=== PATIENT | male | born 1965 | race Caucasian/White ===

== ENCOUNTER 2017-07-04 10:53 | Emergency (ER) | payer MEDICAID, OTHER ==
[2017-07-04 11:05] VITALS: BP 131/91; PULSE 92; RESP 22; TEMP 98; O2SAT 98
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
[2017-07-04] MEDS ORDERED: Amoxicillin-Clav 875-125 mg Tab PO ONE (13:14)
== END 2017-07-04 13:24 | disposition home or self-care (01) ==
LOC: C.ER 10:53
DX: F10.10 Alcohol abuse, uncomplicated (principal); Y90.9 Presence of alcohol in blood, level not specified; S02.2XXA Fracture of nasal bones, initial encounter for closed fracture; S02.31XA Fracture of orbital floor, right side, initial encounter for closed fracture; S01.81XA Laceration without foreign body of other part of head, initial encounter; Y04.0XXA Assault by unarmed brawl or fight, initial encounter

== ENCOUNTER 2017-07-11 14:42 | Inpatient (IN) | payer MEDICAID, OTHER ==
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
[2017-07-11 15:33] LABS: BASO % 0.4 % (0.0-2.0); EOS % 0.2 % (0.0-4.0); HEMATOCRIT 45.3 % (35.0-51.0); LYMPH # 1.8 K/uL (1.0-4.3); LYMPH % 19.9 % (20.0-40.0); MEAN CELL VOLUME 96.2 fL (80.0-94.0); MEAN CORPUSCULAR HEMOGLOBIN 31.9 pg (27.0-31.0); MEAN CORPUSCULAR HGB CONC 33.1 g/dL (33.0-37.0); MEAN PLATELET VOLUME 7.3 fL (7.2-11.7); MONO # 0.8 K/uL (0.0-0.8); MONO % 8.8 % (0.0-10.0); RED CELL DISTRIBUTION WIDTH 14.3 % (11.5-14.5)
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
[2017-07-11 15:56] LABS: ALCOHOL SERUM 149 mg/dl (0-10); ALKALINE PHOSPHATASE 122 U/L (38-126); ALT/SGPT 93 U/L (21-72); AST/SGOT 105 U/L (17-59); BILIRUBIN,TOTAL 0.8 mg/dL (0.2-1.3); BLOOD UREA NITROGEN 11 mg/dL (9-20); CALCIUM 8.3 mg/dl (8.6-10.4); CARBON DIOXIDE 35 mmol/L (22-30); CHLORIDE 100 mmol/L (98-107); GFR AFRICAN-AMERICAN > 60; GLUCOSE,RANDOM 85 mg/dL (75-110); POTASSIUM 4.8 mmol/L (3.6-5.2); SODIUM 141 mmol/L (132-148); TOTAL PROTEIN 9.3 g/dL (6.3-8.3)
[2017-07-11 16:03] LABS: ALB/GLOB RATIO 0.9 (1.0-2.1)
[2017-07-11 17:50] LABS: RBC URINE 2 /hpf (0-3); URINE BILIRUBIN NEGATIVE (NEGATIVE); URINE BLOOD 1+ (NEGATIVE); URINE COLOR Straw (YELLOW); URINE GLUCOSE (UA) NORMAL (Normal); URINE KETONE NEGATIVE (NEGATIVE); URINE LEUKOCYTE ESTERASE NEG Leu/uL (Negative); URINE PROTEIN NEGATIVE (NEGATIVE); URINE UROBILINOGEN NORMAL mg/dL (0.2-1.0); WBC URINE < 1 /hpf (0-5)
--- NOTE | 2017-07-11 21:40 | PCM.BM ---
<Leslee Hernandez - Last Filed: 07/11/17 21:39> Treatment Plan Problems - Problems identified on initial assessmt Potential for alcohol withdrawal Date Initiated: 07/11/17 Time Initiated: 21:39 Assessment reference: NA Status: Active Priority: 1 Treatment assets and liabiliti Patient Assests: ADL independent, negotiates basic needs, cognitively intact Patient Liabilities: substance abuse (ETOH), other (HOMELESS) - Milieu Protocol Maintain good personal hygiene: daily Encourage regular showers, daily Remind patient to perform daily oral care, daily Assist patient to perform ADL's Conduct patient checks and document Observation sheet: Q15 minutes Maintain personal safety: every shift Educate patient to report safety concerns to staff, every shift Monitor environment for contraband/sharps Medication safety: Monitor for expected outcome, potential side effects: every shift, Assess barriers to learning: every shift, Assess readiness for medication education: every shift <Maria Fernanda Calixto - Last Filed: 07/13/17 15:06> Family Contact Family involvement: Famliy/SO not involved Family contact: Patient agrees to contact, Telephone contact initiated by staff - Goals for Treatment Patient goals for treatment: Complete detox, return to methadone program, and live with his brother as he is homeless. Discharge/Continuing Care - Education Needs Education Needs: Patient Medication, Patient Diagnosis/Disease Process, Patient Coping Skills, Patient Anger Management skills, Patient Placement options, Patient Community resources - Discharge Discharge Criteria: Ability to care for self, No longer exhibiting s/s of withdrawal, Reduction of target symptoms Discharge to:: Home, With Family - Treatment Team Participation Patient/Family/SO Statement: 07/13/17 15:07 "I [facility] stay on methadone at [facility]." Discussed with Family/SO: No Was Patient/Family/SO present at Treatment Team Meeting: Yes <Lauren Rai - Last Filed: 07/15/17 18:09> - Diagnosis (1) Alcohol use disorder, severe, dependence Status: Acute Interventions: 07/15/17 18:09 * Assess 7x/week regarding severity of withdrawal * Educate regarding risks, benefits, side effects and alternatives of medications * Use Motivational Interviewing for abstinence * Use CBT for relapse prevention * Medication management for withdrawal symptoms * Encourage medication assisted treatment *
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
--- NOTE | 2017-07-12 07:28 | CP.PCM.PN ---
<Yasmin Adams - Last Filed: 07/12/17 17:43> Subjective - Date & Time of Evaluation Date of Evaluation: 07/12/17 Time of Evaluation: 10:00 - Subjective Subjective: Medicine Note for Hospitalist Service- Dr. Kusum Hurt Patient was seen and examined at bedside. Patient reports he has pain at his right thumb and left knee. Denied fever, chills, headache, SOB, chest pain, abdominal pain, n/v/d/c, or urinary symptoms. Objective - Vital Signs/Intake and Output Vital Signs (last 24 hours): Temp Pulse Resp BP Pulse Ox 98.0 F 66 18 147/90 97 07/12/17 06:28 07/12/17 06:28 07/12/17 06:28 07/12/17 06:28 07/12/17 06:28 - Medications Medications: Current Medications Acetaminophen (Tylenol 325mg Tab) 650 mg PO Q6 PRN PRN Reason: Pain, moderate (4-7) Clonidine HCl (Catapres) 0.1 mg PO Q4H PRN PRN Reason: Symptoms of alcohol withdrawl Folic Acid (Folic Acid) 1 mg PO DAILY [facility] Hydroxyzine HCl (Atarax) 25 mg PO Q6 PRN PRN Reason: Anxiety Lorazepam (Ativan) 1 mg PO Q4H PRN PRN Reason: Symptoms of alcohol withdrawl Lorazepam (Ativan) 1 mg PO Q4 JESSICA PRN Reason: Taper Stop: 07/16/17 21:44 Last Admin: 07/12/17 04:28 Dose: Not Given Multivitamins (Hexavitamin) 1 tab PO DAILY [facility] Thiamine HCl (Vitamin B1 Tab) 100 mg PO DAILY JESSICA Trazodone HCl (Desyrel) 50 mg PO HS PRN PRN Reason: Insomnia - Labs Labs: 07/11/17 15:29 07/11/17 15:29 - Additional Findings Additional findings: - Constitutional Appears: Non-toxic, No Acute Distress, Unkempt, Cachectic - Head Exam Additional comments: laceration between eyebrows - healing abrasion over left eyebrow and chin - Eye Exam Eye Exam: EOMI, PERRL. absent: Periorbital swelling Additional comments: periorbital bruising - ENT Exam ENT Exam: Mucous Membranes Moist - Neck Exam Neck exam: Negative for: Tenderness - Respiratory Exam Respiratory Exam: Clear to Auscultation Bilateral, NORMAL BREATHING PATTERN. absent: Rales, Rhonchi, Wheezes - Cardiovascular Exam Cardiovascular Exam: RRR, +S1, +S2. absent: Bradycardia, Tachycardia, Diastolic murmur, Gallop, Rubs, Systolic Murmur - GI/Abdominal Exam GI & Abdominal Exam: Hyperactive Bowel Sounds, Soft. absent: Distended, Tenderness - Extremities Exam Extremities exam: Positive for: joint swelling (left knee ) Additional comments: LLE: hematoma and abrasion of left anterolateral thigh that is painful to palpation swelling of medial aspect of left knee knee pain with flexion of the knee joint - relieved with extension Full ROM no loss of sensation RUE: DIP of 1st digit swollen and painful to palpation or with flexion, can only achieve approximately 45 degrees of flexion pain with palpation of the proximal phalange of the 1st digit no loss of sensation - Back Exam Back exam: NORMAL INSPECTION - Neurological Exam Neurological exam: Abnormal Gait (limp due to pain of left thigh ), Alert, Oriented x3 Additional comments: tremor of hands b/l - Psychiatric Exam Psychiatric exam: Normal Affect, Normal Mood - Skin Skin Exam: Dry, Normal Color, Warm Assessment and Plan - Assessment and Plan (Free Text) Plan: 52M with PMHx of Untreated Hepatitis C, IVDA - heroine, currently on methadone program 160mg/ day from [facility] in [place]. Medicine Team consulted for injuries of right hand and left thigh and knee s/p fall. Left Thigh Pain Phlegmon vs abscess vs myositis S/P Fall CT of LLE with IV contrast - Limited study with step-off artifact in the distal femur as well as beam hardening artifact in the proximal and mid femur. 1.Heterogeneous attenuation seen at the level of the vastus intermedius muscle throughout its course with associated heterogeneous attenuation at the myofascial interface of the rectus femoris and vastus intermedius muscles. This may represent underlying acute infectious changes and/or underlying phlegmon / abscess collection with myositis. Additional etiologies not entirely excluded. Correlation with MRI is recommended for further evaluation if clinically indicated. 2. Moderate left knee joint effusion. Lateral subluxation of the patella. Moderate medial compartment joint space narrowing of the femoral tibial joint space. 3. Incidentally noted is a prominent heterogeneous and partially calcified prostate gland. Clinical correlation. Head CT: No acute intracranial hemorrhage. Minor chronic periventricular white matter ischemic changes. Mild volume loss. Re- demonstrated are fractures of the right lamina papyracea. Also again seen are comminuted nasal bone fractures and fracture with rightward deviation of the nasal septum. F/U Lower Extremity MRI Tylenol PRN pain Subluxation of Left Patella Ortho Consulted - Dr. Magaña - help appreciated Right Thumb Pain XR of right hand with thumb views - No acute fracture. Mild senescent changes 1st metacarpal phalangeal joint. Old healed fracture with deformity 5th metacarpal. Tylenol PRN pain Transaminitis Hx of Hepatitis C Will need to be managed as outpatient - with GI F/U Hep panel Hx of IVDA On methadone program 160mg/day from [facility] in , confirmed by Psych Management as per Psych Hx of Alcohol Abuse Management as per Psych DW Dr. Kusum Hurt, Bryan ZARATE, PGY-1 <Elvin Hurt - Last Filed: 07/12/17 19:09> Objective - Vital Signs/Intake and Output Vital Signs (last 24 hours): Temp Pulse Resp BP Pulse Ox 98.1 F 67 20 118/89 96 07/12/17 16:30 07/12/17 16:30 07/12/17 16:30 07/12/17 16:30 07/12/17 16:30 - Medications Medications: Current Medications Acetaminophen (Tylenol 325mg Tab) 650 mg PO Q6 PRN PRN Reason: Pain, moderate (4-7) Clonidine HCl (Catapres) 0.1 mg PO Q4H PRN PRN Reason: Symptoms of alcohol withdrawl Folic Acid (Folic Acid) 1 mg PO DAILY [facility] Last Admin: 07/12/17 10:26 Dose: 1 mg Hydroxyzine HCl (Atarax) 25 mg PO Q6 PRN PRN Reason: Anxiety Lorazepam (Ativan) 1 mg PO Q4H PRN PRN Reason: Symptoms of alcohol withdrawl Lorazepam (Ativan) 1 mg PO Q4 [facility] PRN Reason: Taper Stop: 07/16/17 21:44 Last Admin: 07/12/17 16:25 Dose: 1 mg Methadone HCl (Methadone) 20 mg PO DAILY [facility] Last Admin: 07/12/17 10:27 Dose: 20 mg Methadone HCl (Methadose) 120 mg PO DAILY [facility] Last Admin: 07/12/17 10:28 Dose: 120 mg Multivitamins (Hexavitamin) 1 tab PO DAILY [facility] Last Admin: 07/12/17 10:26 Dose: 1 tab Thiamine HCl (Vitamin B1 Tab) 100 mg PO DAILY [facility] Last Admin: 07/12/17 10:26 Dose: 100 mg Trazodone HCl (Desyrel) 50 mg PO HS PRN PRN Reason: Insomnia - Labs Labs: 07/11/17 15:29 07/11/17 15:29 Attending/Attestation - Attestation I have personally seen and examined this patient.: Yes I have fully participated in the care of the patient.: Yes I have reviewed all pertinent clinical information, including history, physical exam and plan: Yes Notes (Text): 07/12/17 19:08 Patient was seen and examined at 8:15 AM 07/12/17 763 B. Exam, assessment and plan were thoroughly gone over with the resident. Elvin Hurt D.O.
[2017-07-12] MEDS: Multiple Vitamins Tab PO SCH (10:26)
[2017-07-12] MEDS: Methadone 40 mg Tab PO SCH (10:28)
[2017-07-12] MEDS ORDERED: Iodixanol 320 MG/ML 100 ML BOTTLE IV ONE (11:08)
--- NOTE | 2017-07-12 11:53 | PCM.PSYCH ---
Initial Psychiatric Evaluation - Initial Psychiatric Evaluation Type of Admission: Voluntary Legal Status: Capacity Chief Complaint (in patient's own words): "I want to get better" History of Present Illness and Precipitating Events: This patient was seen, chart reviewed, and case discussed with staff. Patient is a 52 year old male who is homeless. He is single with 3 adult children (ages 29, 30, 31) and is employed for manual labor (building work , taking out garbage). Patient reports alcohol use, average 1 pint liquor and 5 cans beer daily for the past 3 years. He denies previously attending detox, rehab, or AA. He denies any history of seizures or DT. He is also on a methadone maintenance program at [facility], 160mg which was increased 1 year ago from 80mg. He denies any cocaine, PCP, LSD, or any other drug use. He reports tobacco use at 1ppd. Past medical history: denies Past psychiatric history: schizophrenia, bipolar disorder, depression Family psychiatric history: brother committed suicide Current Medications: Active Medications Generic Name Dose Route Start Last Admin Trade Name Freq PRN Reason Stop Dose Admin Acetaminophen 650 mg 07/12/17 01:19 Tylenol 325mg Tab PO Q6 PRN Pain, moderate (4-7) Clonidine HCl 0.1 mg 07/11/17 21:36 Catapres PO Q4H PRN Symptoms of alcohol withdrawl Folic Acid 1 mg 07/12/17 10:00 07/12/17 10:26 Folic Acid PO 1 mg DAILY JESSICA Administration Hydroxyzine HCl 25 mg 07/11/17 21:37 Atarax PO Q6 PRN Anxiety Lorazepam 1 mg 07/11/17 21:36 Ativan PO Q4H PRN Symptoms of alcohol withdrawl Lorazepam 1 mg 07/11/17 21:45 07/12/17 07:59 Ativan PO 07/16/17 21:44 1 mg Q4 JESSICA Administration Taper Methadone HCl 20 mg 07/12/17 10:00 07/12/17 10:27 Methadone PO 20 mg DAILY JESSICA Administration Methadone HCl 120 mg 07/12/17 10:00 07/12/17 10:28 Methadose PO 120 mg DAILY JESSICA Administration Multivitamins 1 tab 07/12/17 10:00 07/12/17 10:26 Hexavitamin PO 1 tab DAILY JESSICA Administration Thiamine HCl 100 mg 07/12/17 10:00 07/12/17 10:26 Vitamin B1 Tab PO 100 mg DAILY JESSICA Administration Trazodone HCl 50 mg 07/11/17 21:36 Desyrel PO HS PRN Insomnia Past Psychiatric History - Past Psychiatric History Pertinent Medical Hx (Current Medical&Sleep Prob, Allergies): Allergies Allergy/AdvReac Type Severity Reaction Status Date / Time No Known Allergies Allergy Verified 07/11/17 14:57 Amoxicillin/Clavulanate [Augmentin 875 MG-125 MG] 1 tab PO BID #14 tab 07/04/17 Review of Systems - Review of Systems All systems: reviewed and no additional remarkable complaints except - Neurological Neurological: absent: Convulsions, Tremor - Psychiatric Psychiatric: Abnormal Sleep Pattern, Anxiety, Change in Appetite, Depression, Irritability. absent: Auditory Hallucinations, Homicidal Ideation, Paranoia, Suicidal Ideation, Visual Hallucinations Mental Status Examination - Personal Presentation Personal Presentation: Looks stated age - Affect Affect: Constricted, Depressed - Motor Activity Motor Activity: Calm - Reliability in Providing Information Reliability in Providing Information: Fair - Speech Speech: Organized - Mood Mood: Depressed, Anxious - Formal Thought Process Formal Thought Process: No Impairment - Obsessions/Compulsions Obsessions: No Compulsions: No - Cognitive Functions Orientation: Person, Place, Situation, Time Sensorium: Alert Attention/Concentration: Attentive Abstract Thinking: [place] Estimate of Intelligence: Average Judgement: Intact, as evidence by: Insight regarding need for hospitalization Memory: Recent intact, as evidence by: Ability to recall events of the day, Remote intact, as evidenced by: Abilit to recall sig. life events - Risk Risk: Diminished functioning DSM 5 DX - DSM 5 DSM 5 Diagnosis: Alcohol use disorder, severe Alcohol withdrawal Tobacco use disorder, severe - Recommended/Plan of Treatment Treatment Recommendations and Plan of Treatment: Ativan detox Gabapentin for augmentation As needed medications Attend groups and activities Supportive therapy and psychoeducation NC for abstinence CBT for relapse prevention Encourage MAT Refer to rehab or IOP, and self-help groups. Smoking cessation with NC Nicotine patch if requested Projected ELOS: 4-5 days Prognosis: Good with treatment Discharge Plan and Discharge Criteria: No withdrawal symptoms Refer to rehab - Smoking Cessation Smoking Cessation Initiated: Yes
--- NOTE | 2017-07-12 12:41 | CT ---
CT left thigh History: Pain. Evaluate for abscess. Comparison: None available. Technique: Multiple contiguous axial images were performed through the left thigh with the use of intravenous contrast. Subsequently, sagittal and coronal reformatted images were obtained. This CT exam was performed using one or more of the following dose reduction techniques: Automated exposure control, adjustment of the mA and/or kV according to patient size, and/or use of iterative reconstruction technique. Findings: Limited study with step-off artifact in the distal femur as well as beam hardening artifact in the proximal and mid femur. Heterogeneous attenuation seen at the level of the vastus intermedius muscle throughout its course with associated heterogeneous attenuation at the myofascial interface of the rectus femoris and vastus intermedius muscles. This may represent underlying acute infectious changes and/or underlying phlegmon / abscess collection with myositis cannot be excluded. Correlation with MRI is recommended for further evaluation if clinically indicated. Moderate left knee joint effusion. Lateral subluxation of the patella. Moderate medial compartment joint space narrowing of the femoral tibial joint space. Incidentally noted is a prominent heterogeneous and partially calcified prostate gland. Clinical correlation. Impression: Limited study with step-off artifact in the distal femur as well as beam hardening artifact in the proximal and mid femur. 1.Heterogeneous attenuation seen at the level of the vastus intermedius muscle throughout its course with associated heterogeneous attenuation at the myofascial interface of the rectus femoris and vastus intermedius muscles. This may represent underlying acute infectious changes and/or underlying phlegmon / abscess collection with myositis. Additional etiologies not entirely excluded. Correlation with MRI is recommended for further evaluation if clinically indicated. 2. Moderate left knee joint effusion. Lateral subluxation of the patella. Moderate medial compartment joint space narrowing of the femoral tibial joint space. 3. Incidentally noted is a prominent heterogeneous and partially calcified prostate gland. Clinical correlation.
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
--- NOTE | 2017-07-13 07:15 | CP.PCM.PN ---
<Yasmin Adams - Last Filed: 07/13/17 15:08> Subjective - Date & Time of Evaluation Date of Evaluation: 07/13/17 Time of Evaluation: 07:00 - Subjective Subjective: Medicine Note for Hospitalist Service- Dr. Kusum Hurt Patient was seen and examined at bedside. Patient reports he continues to have pain, but reports he's okay. He has been working with PT. Denied fever, chills, headache, SOB, chest pain, abdominal pain, n/v/d/c, or urinary symptoms. Objective - Vital Signs/Intake and Output Vital Signs (last 24 hours): Temp Pulse Resp BP Pulse Ox 97.8 F 88 18 135/96 H 97 07/13/17 06:33 07/13/17 06:33 07/13/17 06:33 07/13/17 06:33 07/13/17 06:33 - Medications Medications: Current Medications Acetaminophen (Tylenol 325mg Tab) 650 mg PO Q6 PRN PRN Reason: Pain, moderate (4-7) Clonidine HCl (Catapres) 0.1 mg PO Q4H PRN PRN Reason: Symptoms of alcohol withdrawl Last Admin: 07/12/17 20:53 Dose: 0.1 mg Folic Acid (Folic Acid) 1 mg PO DAILY [facility] Last Admin: 07/12/17 10:26 Dose: 1 mg Hydroxyzine HCl (Atarax) 25 mg PO Q6 PRN PRN Reason: Anxiety Ibuprofen (Motrin Tab) 600 mg PO Q6 PRN PRN Reason: Pain Lorazepam (Ativan) 1 mg PO Q4H PRN PRN Reason: Symptoms of alcohol withdrawl Lorazepam (Ativan) 1 mg PO Q6 [facility] PRN Reason: Taper Stop: 07/16/17 21:44 Last Admin: 07/13/17 06:48 Dose: 1 mg Methadone HCl (Methadone) 20 mg PO DAILY [facility] Last Admin: 07/12/17 10:27 Dose: 20 mg Methadone HCl (Methadose) 120 mg PO DAILY [facility] Last Admin: 07/12/17 10:28 Dose: 120 mg Multivitamins (Hexavitamin) 1 tab PO DAILY [facility] Last Admin: 07/12/17 10:26 Dose: 1 tab Thiamine HCl (Vitamin B1 Tab) 100 mg PO DAILY [facility] Last Admin: 07/12/17 10:26 Dose: 100 mg Trazodone HCl (Desyrel) 50 mg PO HS PRN PRN Reason: Insomnia - Labs Labs: 07/11/17 15:29 07/11/17 15:29 - Additional Findings Additional findings: - Constitutional Appears: Non-toxic, No Acute Distress, Unkempt, Cachectic - Head Exam Additional comments: laceration between eyebrows - healing abrasion over left eyebrow and chin - Eye Exam Eye Exam: EOMI, PERRL. absent: Periorbital swelling Additional comments: periorbital bruising - ENT Exam ENT Exam: Mucous Membranes Moist - Neck Exam Neck exam: Negative for: Tenderness - Respiratory Exam Respiratory Exam: Clear to Auscultation Bilateral, NORMAL BREATHING PATTERN. absent: Rales, Rhonchi, Wheezes - Cardiovascular Exam Cardiovascular Exam: RRR, +S1, +S2. absent: Bradycardia, Tachycardia, Diastolic murmur, Gallop, Rubs, Systolic Murmur - GI/Abdominal Exam GI & Abdominal Exam: Hyperactive Bowel Sounds, Soft. absent: Distended, Tenderness - Extremities Exam Extremities exam: Positive for: joint swelling (left knee ) Additional comments: LLE: hematoma and abrasion of left anterolateral thigh that is painful to palpation swelling of medial aspect of left knee knee pain with flexion of the knee joint - relieved with extension Full ROM no loss of sensation RUE: DIP of 1st digit swollen and painful to palpation or with flexion, can only achieve approximately 45 degrees of flexion pain with palpation of the proximal phalange of the 1st digit no loss of sensation - Back Exam Back exam: NORMAL INSPECTION - Neurological Exam Neurological exam: Abnormal Gait (limp due to pain of left thigh ), Alert, Oriented x3 Additional comments: tremor of hands b/l - Psychiatric Exam Psychiatric exam: Normal Affect, Normal Mood - Skin Skin Exam: Dry, Normal Color, Warm Assessment and Plan - Assessment and Plan (Free Text) Plan: 52M with PMHx of Untreated Hepatitis C, IVDA - heroine, 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 Medicine Team consulted for injuries of right hand and left thigh and knee s/p fall. Left Thigh Pain Phlegmon vs abscess vs myositis S/P Fall CT of LLE with IV contrast - Limited study with step-off artifact in the distal femur as well as beam hardening artifact in the proximal and mid femur. 1.Heterogeneous attenuation seen at the level of the vastus intermedius muscle throughout its course with associated heterogeneous attenuation at the myofascial interface of the rectus femoris and vastus intermedius muscles. This may represent underlying acute infectious changes and/or underlying phlegmon / abscess collection with myositis. Additional etiologies not entirely excluded. Correlation with MRI is recommended for further evaluation if clinically indicated. 2. Moderate left knee joint effusion. Lateral subluxation of the patella. Moderate medial compartment joint space narrowing of the femoral tibial joint space. 3. Incidentally noted is a prominent heterogeneous and partially calcified prostate gland. Clinical correlation. Head CT: No acute intracranial hemorrhage. Minor chronic periventricular white matter ischemic changes. Mild volume loss. Re- demonstrated are fractures of the right lamina papyracea. Also again seen are comminuted nasal bone fractures and fracture with rightward deviation of the nasal septum. Lower Extremity MRI - Incomplete study. The patient could not tolerate the exam. No axial or postcontrast images obtained.Heterogeneous increased T2 stair signal at the lateral aspect of the left thigh extending from the level of the trochanteric process to the level of the left knee and involving the soft tissue including the muscles. Findings likely represent posttraumatic inflammatory changes including myositis. The possibility of superimposed infectious process is not totally excluded. No evidence of discrete drainable fluid collection in the left thigh in this study. No evidence of acute pathology at the left femur. Tylenol PRN pain Subluxation of Left Patella Ortho Consulted - Dr. Magaña - help appreciated - "MRI reviewed. Given history of significant multiple falls, the MRI is consistent with post traumatic falls and contusions. No clinical suspicion of infectious process. Orthopedically stable. Patient to continue PT for ambulation training, and orthopedic follow up as outpatient. Dr. Salas aware, agrees" Right Thumb Pain XR of right hand with thumb views - No acute fracture. Mild senescent changes 1st metacarpal phalangeal joint. Old healed fracture with deformity 5th metacarpal. Tylenol PRN pain Transaminitis Hx of Hepatitis C Will need to be managed as outpatient - with GI Hep panel - negative Hx of IVDA On methadone program 160mg/day from [facility] in , confirmed by Psych Management as per Psych Hx of Alcohol Abuse Management as per Psych Disposition: Medicine Team will be signing off of this patient. Patient is medically stable. Orthopedically stable. He is to continue PT and applying ICE. Thank you for consulting Medicine, please reconsult if necessary. DW Dr. Kusum Hurt, Bryan ZARATE, PGY-1 <Elvin Hurt - Last Filed: 07/13/17 17:50> Objective - Vital Signs/Intake and Output Vital Signs (last 24 hours): Temp Pulse Resp BP Pulse Ox 97.6 F 71 18 113/77 99 07/13/17 16:45 07/13/17 16:45 07/13/17 16:45 07/13/17 16:45 07/13/17 16:45 - Medications Medications: Current Medications Acetaminophen (Tylenol 325mg Tab) 650 mg PO Q6 PRN PRN Reason: Pain, moderate (4-7) Clonidine HCl (Catapres) 0.1 mg PO Q4H PRN PRN Reason: Symptoms of alcohol withdrawl Last Admin: 07/12/17 20:53 Dose: 0.1 mg Folic Acid (Folic Acid) 1 mg PO DAILY [facility] Last Admin: 07/13/17 11:38 Dose: 1 mg Hydroxyzine HCl (Atarax) 25 mg PO Q6 PRN PRN Reason: Anxiety Lorazepam (Ativan) 1 mg PO Q4H PRN PRN Reason: Symptoms of alcohol withdrawl Lorazepam (Ativan) 1 mg PO Q6 [facility] PRN Reason: Taper Stop: 07/16/17 21:44 Last Admin: 07/13/17 12:25 Dose: 1 mg Methadone HCl (Methadone) 20 mg PO DAILY [facility] Last Admin: 07/13/17 11:37 Dose: 20 mg Methadone HCl (Methadose) 120 mg PO DAILY [facility] Last Admin: 07/13/17 11:37 Dose: 120 mg Multivitamins (Hexavitamin) 1 tab PO DAILY [facility] Last Admin: 07/13/17 11:38 Dose: 1 tab Naproxen (Anaprox Ds) 550 mg PO BID [facility] Last Admin: 07/13/17 12:25 Dose: 550 mg Thiamine HCl (Vitamin B1 Tab) 100 mg PO DAILY [facility] Last Admin: 07/13/17 11:38 Dose: 100 mg Trazodone HCl (Desyrel) 50 mg PO HS PRN PRN Reason: Insomnia - Labs Labs: 07/13/17 08:34 07/13/17 08:34 Attending/Attestation - Attestation I have personally seen and examined this patient.: Yes I have fully participated in the care of the patient.: Yes I have reviewed all pertinent clinical information, including history, physical exam and plan: Yes Notes (Text): 07/13/17 17:49 Patient was seen and examined at 7:45 AM 07/13/17 763B Exam, assessment and plan were thoroughly gone over with the resident. Patient is orthopedically and medically stable. Medicine Team will be signing off on patient. Please reconsult if needed. Elvin Hurt D.O.
[2017-07-13 08:41] LABS: BASO % 0.2 % (0.0-2.0); EOS # 0.1 K/uL (0.0-0.7); EOS % 1.3 % (0.0-4.0); HEMATOCRIT 43.3 % (35.0-51.0); LYMPH # 1.2 K/uL (1.0-4.3); LYMPH % 19.5 % (20.0-40.0); MEAN CELL VOLUME 96.2 fL (80.0-94.0); MEAN CORPUSCULAR HEMOGLOBIN 32.6 pg (27.0-31.0); MEAN CORPUSCULAR HGB CONC 33.9 g/dL (33.0-37.0); MEAN PLATELET VOLUME 7.5 fL (7.2-11.7); MONO # 0.7 K/uL (0.0-0.8); MONO % 10.9 % (0.0-10.0); RED CELL DISTRIBUTION WIDTH 13.8 % (11.5-14.5); WHITE BLOOD COUNT 6.2 K/uL (4.8-10.8)
[2017-07-13 08:57] LABS: ALB/GLOB RATIO 0.9 (1.0-2.1); ALKALINE PHOSPHATASE 108 U/L (38-126); ALT/SGPT 71 U/L (21-72); AST/SGOT 72 U/L (17-59); BILIRUBIN,TOTAL 1.3 mg/dL (0.2-1.3); BLOOD UREA NITROGEN 9 mg/dL (9-20); CALCIUM 8.3 mg/dl (8.6-10.4); CARBON DIOXIDE 29 mmol/L (22-30); CHLORIDE 100 mmol/L (98-107); GFR AFRICAN-AMERICAN > 60; GLUCOSE,RANDOM 103 mg/dL (75-110); POTASSIUM 4.4 mmol/L (3.6-5.2); SODIUM 131 mmol/L (132-148); TOTAL PROTEIN 8.3 g/dL (6.3-8.3)
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
[2017-07-13] MEDS: Methadone 40 mg Tab PO SCH (11:37)
[2017-07-13] MEDS: Multiple Vitamins Tab PO SCH (11:38)
[2017-07-13] MEDS: Naproxen 550 mg Tab PO SCH ×2 (12:25→18:45)
--- NOTE | 2017-07-13 13:16 | MRI ---
PROCEDURE: MRI of the left thigh without contrast. HISTORY: Rule out Phlegmon/Abscess Left Thigh COMPARISON: Comparison is made to the previous CT of the lower extremity with contrast dated 07/12/2017 TECHNIQUE: Coronal T1 and stare of both thighs and sagittal T1 and proton density of the left thigh were obtained without IV contrast administration. Incomplete study. The patient could not complete the exam and requested to stop the exam. No axial images or postcontrast images were obtained FINDINGS: There are heterogeneous increased T2 stair signal at the lateral aspect of the left thigh extending from the level of the greater trochanter to the level of the lateral femoral condyle involving the soft tissue including the subcutaneous soft tissue and the muscles. Findings corresponding to the previous CT findings and likely represent posttraumatic inflammatory changes. The possibility of infectious process is less likely but not totally excluded. No definite evidence of discrete drainable fluid collection at the left thigh noted in this exam. Diffuse abnormal increased signal of the muscles at the lateral aspect of the left thigh suggestive of myositis. The left femur is normal in shape and signal characteristic. No evidence of bone marrow edema or cortical erosion or interruption to suggest acute pathology at the left femur. Partially imaged left knee joint demonstrates joint effusion. IMPRESSION: Incomplete study. The patient could not tolerate the exam. No axial or postcontrast images obtained. Heterogeneous increased T2 stair signal at the lateral aspect of the left thigh extending from the level of the trochanteric process to the level of the left knee and involving the soft tissue including the muscles. Findings likely represent posttraumatic inflammatory changes including myositis. The possibility of superimposed infectious process is not totally excluded. No evidence of discrete drainable fluid collection in the left thigh in this study. No evidence of acute pathology at the left femur.
--- NOTE | 2017-07-13 13:36 | PCM.PYCHPN ---
Psychiatric Progress Note - Psychiatric Progress Note Patient seen today, length of contact: 15 min Patient Chief Complaint: "I am very tired" Problems Identified/Issues Discussed: The pt is seen, chart reviewed, case discussed with staff. Support given, CBT and MD used briefly No new symptoms reported, improving slowly and needs more time No SEs from medications, risks discussed. After care discussed Medicine is on board - help appreciated Medication Change: Yes (detox changes daily) Medical Record Reviewed: Yes Mental Status Examination - Cognitive Function Orientation: Person, Place, Situation, Time Memory: Impaired Attention: Poor Concentration: Poor Association: WNL Fund of Knowledge: Poor - Mood Mood: Depressed, Anxious - Affect Affect: Constricted, Depressed - Speech Speech: Slurred - Formal Thought Process Formal Thought Process: No Impairment - Suicidal Ideation Suicidal Ideation: No - Homicidal Ideation Homicidal Ideation: No Goal/Treatment Plan - Goal/Treatment Plan Need for Continued Stay: Discharge may exacerbated symptoms, Severe functional impairment Progress Toward Problem(s) and Goals/Treatment Plan: Ativan detox Gabapentin for augmentation As needed medications Attend groups and activities Supportive therapy and psychoeducation MD for abstinence CBT for relapse prevention Encourage MAT Refer to rehab or IOP, and self-help groups. Smoking cessation with MD Nicotine patch if requested Consult appreciated
--- NOTE | 2017-07-13 16:19 | RAD ---
PROCEDURE: Left Knee Radiographs. HISTORY: Pain. COMPARISON: None. FINDINGS: BONES: Bone alignment is normal. There is diffuse bone demineralization. There is no acute displaced fracture or bone destruction. JOINTS: There is mild degenerative osteoarthrosis in the medial compartment with reduced joint space. JOINT EFFUSION: None. OTHER FINDINGS: None. IMPRESSION: No acute fracture or dislocation
--- NOTE | 2017-07-13 17:52 | CP.PCM.PCO ---
Physician Communication Note - Physician Communication Note Physician Communication Note: Please see above
[2017-07-14] MEDS: Multiple Vitamins Tab PO SCH (09:23)
[2017-07-14] MEDS: Methadone 40 mg Tab PO SCH (09:24)
[2017-07-14] MEDS: Naproxen 550 mg Tab PO SCH ×2 (09:56→17:42)
--- NOTE | 2017-07-14 14:30 | PCM.PYCHPN ---
Psychiatric Progress Note - Psychiatric Progress Note Patient seen today, length of contact: 15 min Patient Chief Complaint: I'm feeling better. Can you reduce the dose of my methadone. Problems Identified/Issues Discussed: Patient seen, chart reviewed, case discussed with the staff. Issues related to illness and treatment were discussed with the patient. Reported compliant with treatment with no adverse effects. Tolerating treatment very well. Reported feeling much better with the treatment. Aftercare discussed with the patient. Denied any delusions, auditory or visual hallucinations, suicidal ideations or homicidal ideations at the time of evaluation. Medical Problems: None reported Diagnostic Results: Reviewed DSM 5 Symptoms Update: Improving with treatment Medication Change: No Medical Record Reviewed: Yes Mental Status Examination - Cognitive Function Orientation: Person, Place, Situation, Time Memory: Intact Attention: WNL Concentration: WNL Association: WNL Fund of Knowledge: [facility] Decription of patient's judgement and insights: Fair - Mood Mood: Neutral - Affect Affect: Other (Appropriate) - Speech Speech: Appropriate - Formal Thought Process Formal Thought Process: No Impairment Psychotic Thoughts and Behaviors: None - Suicidal Ideation Suicidal Ideation: No - Homicidal Ideation Homicidal Ideation: No Goal/Treatment Plan - Goal/Treatment Plan Need for Continued Stay: Remain at risks for inpatient hospitalization, Discharge may exacerbated symptoms, Severe functional impairment Progress Toward Problem(s) and Goals/Treatment Plan: Improving. Patient education. Supportive therapy. Continue treatment as before. [facility] after discharge from the hospital. Estimated Date of D/C: 07/16/17 - Smoking Cessation Smoking Cessation Initiated: No
[2017-07-14 18:22] VITALS: RESP 18
[2017-07-15] MEDS: Naproxen 550 mg Tab PO SCH ×2 (09:33→17:31)
[2017-07-15] MEDS: Methadone 40 mg Tab PO SCH (09:33)
[2017-07-15] MEDS: Multiple Vitamins Tab PO SCH (09:33)
--- NOTE | 2017-07-15 15:24 | PCM.PYCHPN ---
Psychiatric Progress Note - Psychiatric Progress Note Patient seen today, length of contact: 15 min Patient Chief Complaint: "I have alcohol craving" Problems Identified/Issues Discussed: The pt is seen, chart reviewed, case discussed with staff. The pt stated that he has alcohol craving. However, he stated that he still had etoh craving. The pt is compliant with medications and reports no side-effects. Symptoms are improving but needs more time to stabilize. After care discussed, support and psychoeducation given. DSM 5 Symptoms Update: Alcohol use disorder, severe Alcohol withdrawal Tobacco use disorder, severe Medication Change: Yes (detox changes daily) Medical Record Reviewed: Yes Mental Status Examination - Cognitive Function Orientation: Person, Place, Situation, Time Memory: Impaired Attention: Poor Concentration: Poor Association: WNL Fund of Knowledge: Poor Decription of patient's judgement and insights: limited/limited - Mood Mood: Depressed, Anxious - Affect Affect: Constricted, Depressed - Speech Speech: Slurred - Formal Thought Process Formal Thought Process: No Impairment Psychotic Thoughts and Behaviors: denied - Suicidal Ideation Suicidal Ideation: No - Homicidal Ideation Homicidal Ideation: No Goal/Treatment Plan - Goal/Treatment Plan Need for Continued Stay: Discharge may exacerbated symptoms, Severe functional impairment Progress Toward Problem(s) and Goals/Treatment Plan: Ativan detox Gabapentin for augmentation As needed medications Attend groups and activities Supportive therapy and psychoeducation NM for abstinence CBT for relapse prevention Encourage MAT Refer to rehab or IOP, and self-help groups. Smoking cessation with NM Estimated Date of D/C: 07/16/17
[2017-07-15 20:24] VITALS: O2SAT 97
[2017-07-16 06:37] VITALS: BP 99/76; PULSE 88; TEMP 97.9
--- NOTE | 2017-07-16 08:58 | PCM.PYCHDC ---
Mental Status Examination - Mental Status Examination Orientation: Person, Place, Situation, Time Memory: Intact Mood: Anxious Affect: Constricted Speech: Appropriate Attention: WNL Concentration: Poor Association: WNL Fund of Knowledge: WNL Formal Thought Process: No Impairment Suicidal Ideation: No Current Homicidal Ideation?: No Discharge Summary - Discharge Note Reason for Hospitalization: Alcohol detox On methadone maint. Consultations:: List each consultation separately and include: 1. Reason for request. 2. Findings. 3. Follow-up Summary of Hospital Course include:: 1. Description of specific treatment plan utilized for patients during their course of treatmen. 2. Summarize the time- course for resolution of acute symptoms and/or regressed behaviors. 3. Describe issues identified and worked on during hospitalization. 4. Describe medication utilized. 5. Describe medical problems identified and treated. 6. Reassessment of suicide risk Summary of Hospital Course: This patient was seen, chart reviewed, and case discussed with staff. On admission: Patient is a 52 year old male who is homeless. He is single with 3 adult children (ages 29, 30, 31) and is employed for manual labor (building work , taking out garbage). Patient reports alcohol use, average 1 pint liquor and 5 cans beer daily for the past 3 years. He denies previously attending detox, rehab, or AA. He denies any history of seizures or DT. He is also on a methadone maintenance program at [facility], 160mg which was increased 1 year ago from 80mg. He denies any cocaine, PCP, LSD, or any other drug use. He reports tobacco use at 1ppd. Past medical history: denies Past psychiatric history: schizophrenia, bipolar disorder, depression Family psychiatric history: brother committed suicide Hospital course: The pt was admitted and started on treatment with psychotherapy, support, psychoeducation and medications. OR and CBT used. The pt attended groups and activities, as well as milieu therapy. All the risks and benefits of medications are discussed and the patient understood and agreed. The pt improved with the treatments provided. After care discussed with the patient. - Final Diagnosis (DSM 5) Condition upon Discharge: IMPROVED DSM 5: Alcohol use disorder, severe Alcohol withdrawal Tobacco use disorder, severe Disposition: HOME/ ROUTINE Follow-up Treatment Plan: Continue below medications after discharge. Follow after care plan as discussed. Use relapse prevention skills Return to ER or call 911 if suicidal, homicidal or symptoms relapse. Stay away from stress, alcohol and drugs. See primary doctor regularly and get labs. Prescriptions/Medication Reconciliation: Multivitamins [Hexavitamin] 1 tab PO DAILY #30 tab traZODone [Desyrel] 50 mg PO HS PRN #30 tab PRN Reason: Insomnia - Smoking Cessation Smoking Cessation Medication prescribed: No - Antipsychotic Medications Pt discharged on 2 or more routine antipsychotic medications: No
[2017-07-16] MEDS: Methadone 40 mg Tab PO SCH (09:18)
[2017-07-16] MEDS: Multiple Vitamins Tab PO SCH (09:19)
[2017-07-16] MEDS: Naproxen 550 mg Tab PO SCH (09:19)
== END 2017-07-16 10:45 | disposition home or self-care (01) | DRG 744 ==
LOC: C.ER 14:42 → C.7D 18:23
PROVIDERS: ADMIT Psychiatry & Neurology Psychiatry; ATTEND Psychiatry & Neurology Psychiatry
PROC: HZ2ZZZZ Detoxification Services for Substance Abuse Treatment (ICD-10-PCS; principal; 2017-07-11)
PROC: HZ46ZZZ Group Counseling for Substance Abuse Treatment, Psychoeducation (ICD-10-PCS; 2017-07-11)
PROC: HZ59ZZZ Individual Psychotherapy for Substance Abuse Treatment, Supportive (ICD-10-PCS; 2017-07-11)
PROC: HZ81ZZZ Medication Management for Substance Abuse Treatment, Methadone Maintenance (ICD-10-PCS; 2017-07-11)
DX: F10.230 Alcohol dependence with withdrawal, uncomplicated (principal); E86.0 Dehydration; F11.20 Opioid dependence, uncomplicated; F20.9 Schizophrenia, unspecified; F31.9 Bipolar disorder, unspecified; M17.12 Unilateral primary osteoarthritis, left knee; M60.9 Myositis, unspecified; S83.013A Lateral subluxation of unspecified patella, initial encounter; W22.09XA Striking against other stationary object, initial encounter; S00.93XA Contusion of unspecified part of head, initial encounter; S00.83XA Contusion of other part of head, initial encounter; V18.4XXA Pedal cycle driver injured in noncollision transport accident in traffic accident, initial encounter; Y93.55 Activity, bike riding; Z59.0 Homelessness

== ENCOUNTER 2018-03-18 17:51 | Inpatient (IN) | payer MEDICAID, OTHER ==
[2018-03-18 18:01] VITALS: BMI 24.2
--- NOTE | 2018-03-18 19:31 | C.PDOC ---
History Of Present Illness 52 year old female presents to the emergency department requesting detox from alcohol and heroin. Patient states he last drank this morning and last heroin use was several hours ago. He states he does not have any medical complaints. Time Seen by Provider: 03/18/18 18:50 Chief Complaint (Nursing): Substance Abuse History Per: Patient History/Exam Limitations: no limitations Past Medical History Reviewed: Historical Data, Nursing Documentation, Vital Signs Vital Signs: Last Vital Signs Temp 97.7 F 03/18/18 21:36 Pulse 84 03/18/18 21:36 Resp 20 03/18/18 21:36 BP 125/84 03/18/18 21:36 Pulse Ox 95 03/18/18 21:36 - Medical History PMH: Anxiety, Back Problems, Depression, Hepatitis (C), Pancreatitis, Schizophrenia Denies: HIV, HTN, Chronic Kidney Disease, Sexually Transmitted Disease Surgical History: Cholecystectomy - [facility] Procedures ALCOHOL DETOXIFICATION (04/20/15) DETOXIFICATION SERVICES FOR SUBSTANCE ABUSE TREATMENT (07/11/17) GROUP MANAGER REPORTING FOR SUBSTANCE ABUSE TREATMENT, PSYCHOEDUCATION (07/11/17) INDIV PSYCHOTHERAPY FOR SUBSTANCE ABUSE TREATMENT, SUPPORT (07/11/17) MEDS MGMT FOR SUBSTANCE ABUSE TREATMENT, METHADONE MAINT (07/11/17) Family History: States: No Known Family Hx - Social History Hx Tobacco Use: Yes Hx Alcohol Use: Yes Hx Substance Use: Yes - Immunization History Hx Tetanus Toxoid Vaccination: No Hx Influenza Vaccination: Yes Hx Pneumococcal Vaccination: No Review Of Systems Constitutional: Negative for: Fever, Chills Eyes: Negative for: Pain Cardiovascular: Negative for: Chest Pain Respiratory: Negative for: Shortness of Breath Gastrointestinal: Negative for: Nausea, Abdominal Pain Skin: Negative for: Rash Neurological: Negative for: Weakness, Numbness Psych: Negative for: Suicidal ideation Physical Exam - Physical Exam Appears: Non-toxic, No Acute Distress, Other (Disheveled intoxication) Skin: Normal Color, Warm, Dry Head: Atraumatic, Normacephalic Eye(s): bilateral: Normal Inspection Oral Mucosa: Moist Neck: Supple Chest: Symmetrical Cardiovascular: Rhythm Regular, No Murmur Respiratory: Normal Breath Sounds, No Rales, No Rhonchi, No Wheezing Gastrointestinal/Abdominal: Normal Exam, Soft, No Tenderness Extremity: Bilateral: Atraumatic Neurological/Psych: Oriented x3, Normal Speech ED Course And Treatment - Laboratory Results Result Diagrams: 03/18/18 19:47 03/18/18 19:47 O2 Sat by Pulse Oximetry: 95 (RA) Pulse Ox Interpretation: Normal Medical Decision Making Medical Decision Making: Impression: Alcohol and heroin abuse Plan: -Labs -Urinalysis Patient medically cleared and admitted to detox under Dr. Díaz. Disposition - Disposition Disposition: HOSPITALIZED Disposition Time: 22:31 Condition: GOOD - Clinical Impression Clinical Impression: Alcohol abuse, Drug abuse - Scribe Statement The provider has reviewed the documentation as recorded by the Jovani Randhawa Provider Attestation: All medical record entries made by the Jovani were at my direction and personally dictated by me. I have reviewed the chart and agree that the record accurately reflects my personal performance of the history, physical exam, medical decision making, and the department course for this patient. I have also personally directed, reviewed, and agree with the discharge instructions and disposition.
[2018-03-18 19:51] LABS: BASO # 0.1 K/uL (0.0-0.2); BASO % 0.7 % (0.0-2.0); EOS # 0.1 K/uL (0.0-0.7); EOS % 1.7 % (0.0-4.0); HEMOGLOBIN 14.2 g/dL (12.0-18.0); LYMPH # 2.1 K/uL (1.0-4.3); LYMPH % 27.5 % (20.0-40.0); MEAN CELL VOLUME 95.3 fL (80.0-94.0); MEAN CORPUSCULAR HEMOGLOBIN 32.9 pg (27.0-31.0); MEAN CORPUSCULAR HGB CONC 34.6 g/dL (33.0-37.0); MEAN PLATELET VOLUME 6.8 fL (7.2-11.7); MONO # 0.8 K/uL (0.0-0.8); MONO % 11.3 % (0.0-10.0); NEUT # 4.4 K/uL (1.8-7.0); NEUT % 58.8 % (50.0-75.0); NRBC % 0.1 % (0.0-2.0); RBC 4.3 Mil/uL (4.40-5.90); RED CELL DISTRIBUTION WIDTH 12.9 % (11.5-14.5)
[2018-03-18 19:53] LABS: WHITE BLOOD COUNT 7.5 K/uL (4.8-10.8)
[2018-03-18 20:02] LABS: SQUAMOUS EPITHIAL < 1 /hpf (0-5); URINE BACTERIA RARE (<OCC); URINE BILIRUBIN NEGATIVE (NEGATIVE); URINE BLOOD 2+ (NEGATIVE); URINE CLARITY Clear (Clear); URINE COLOR Yellow (YELLOW); URINE GLUCOSE (UA) NORMAL (Normal); URINE HYALINE CAST 0-2 /lpf (0-2); URINE LEUKOCYTE ESTERASE NEG Leu/uL (Negative); URINE PROTEIN 1+ mg/dL (NEGATIVE); URINE UROBILINOGEN NORMAL mg/dL (0.2-1.0)
[2018-03-18 20:10] LABS: BARBITURATES, UR NEGATIVE (NEGATIVE); BENZODIAZEPINES, UR NEGATIVE (NEGATIVE); PHENCYCLIDINE, UR NEGATIVE (NEGATIVE)
[2018-03-18 20:17] LABS: ALB/GLOB RATIO 1.2 (1.0-2.1); ALBUMIN 4.3 g/dL (3.5-5.0); ALT/SGPT 27 U/L (21-72); AST/SGOT 36 U/L (17-59); BLOOD UREA NITROGEN 12 mg/dL (9-20); CALCIUM 8.7 mg/dl (8.6-10.4); GFR AFRICAN-AMERICAN > 60; GFR NON-AFRICAN AMERICAN > 60
[2018-03-18 20:50] LABS: OPIATES, UR POSITIVE (NEGATIVE)
--- NOTE | 2018-03-19 09:58 | PCM.PSYCH ---
Initial Psychiatric Evaluation - Initial Psychiatric Evaluation Type of Admission: Voluntary Legal Status: Capacity Chief Complaint (in patient's own words): "I need help" History of Present Illness and Precipitating Events: This patient was seen, chart reviewed, and case discussed with staff. Patient is a 52 year old male who is homeless. He is single with 3 adult children (ages 29, 30, 31) and is still employed for manual labor ( building work, taking out garbage). he is known from a previous detox admission. Patient reports alcohol use, average 3 pints of liquor and few cans beer daily for the past 3 years but he increased remarkably this year. He denies previously attending detox except for here in June 2017, rehab, or AA. He denies any history of seizures but had DT-like episodes. He was on a methadone maintenance program at [facility], 160mg/day but they "kicked him out" after he kept on drinking afetr the detox. He claims they did not taper him off. He now uses 5 bags of heroin IV. He denies any cocaine, PCP, LSD, but uses MJ daily and tobacco use at 1ppd. Past medical history: HTN Past psychiatric history: schizophrenia, bipolar disorder, depression, PTSD and he still has depression and anxiety Family psychiatric history: brother committed suicide Current Medications: Active Medications Generic Name Dose Route Start Last Admin Trade Name Freq PRN Reason Stop Dose Admin Chlordiazepoxide 25 mg 03/19/18 04:25 03/19/18 04:42 Librium PO 25 mg Q8 PRN Administration Alcohol Withdrawal Chlordiazepoxide 25 mg 03/19/18 12:00 Librium PO 03/23/18 11:59 Q6 JESSICA Taper Clonidine HCl 0.1 mg 03/19/18 00:56 03/19/18 01:48 Catapres PO 0.1 mg Q6 PRN Administration withdrawal symptoms Folic Acid 1 mg 03/19/18 10:00 Folic Acid PO DAILY JESSICA Hydroxyzine HCl 25 mg 03/19/18 04:24 Atarax PO Q6H PRN Anxiety Multivitamins 1 tab 03/19/18 10:00 Hexavitamin PO DAILY JESSICA Thiamine HCl 100 mg 03/19/18 10:00 Vitamin B1 Tab PO DAILY JESSICA Trazodone HCl 50 mg 03/19/18 00:56 03/19/18 01:48 Desyrel PO 50 mg HS PRN Administration insomnia Past Psychiatric History - Past Psychiatric History Previous Treatment History: Intensive Outpatient Pertinent Medical Hx (Current Medical&Sleep Prob, Allergies): Allergies Allergy/AdvReac Type Severity Reaction Status Date / Time No Known Allergies Allergy Verified 03/18/18 18:00 No Known Home Med 03/18/18 Review of Systems - Neurological Neurological: UNREMARKABLE - Psychiatric Psychiatric: Abnormal Sleep Pattern, Anhedonia, Anxiety, Behavioral Changes, Change in Appetite, Depression, Difficulty Concentrating, Irritability. absent : Homicidal Ideation, Suicidal Ideation Mental Status Examination - Personal Presentation Personal Presentation: Looks older than stated age - Affect Affect: Constricted - Motor Activity Motor Activity: Calm - Reliability in Providing Information Reliability in Providing Information: Good - Speech Speech: Organized - Mood Mood: Depressed, Anxious - Formal Thought Process Formal Thought Process: No Impairment - Cognitive Functions Orientation: Person, Place, Situation, Time Sensorium: Alert Attention/Concentration: Attentive Abstract Thinking: [place] Estimate of Intelligence: Average Judgement: Intact, as evidence by: Insight regarding need for hospitalization Memory: Recent intact, as evidence by: Ability to recall events of the day, Remote intact, as evidenced by: Abilit to recall sig. life events - Risk Risk: Withdrawal, Diminished functioning - Strength & Assets Inventory Strength & Assets Inventory: Cooperative - Limitations Limitations: Living alone DSM 5 DX - DSM 5 DSM 5 Diagnosis: Opioid withdrawal Opioid use d/o - severe Alcohol withdrawal - uncomplicated Alcohol use d/o- severe - Recommended/Plan of Treatment Treatment Recommendations and Plan of Treatment: Taper with methadone and librium Gabapentin for augmentation if needed As needed medications All risks, benefits and alternatives of the meds discussed, and the pt agreed and understood. Attend groups and activities Supportive therapy and psychoeducation AL for abstinence CBT for relapse prevention Encourage MAT Refer to rehab or IOP, and self-help groups Smoking cessation with AL Nicotine patch if needed 34 min Projected ELOS: 5 days Prognosis: good w treatment - Smoking Cessation Smoking Cessation Initiated: Yes
[2018-03-19] MEDS: Multiple Vitamins Tab PO SCH (10:01)
--- NOTE | 2018-03-19 10:05 | PCM.BM ---
<Piper Crews - Last Filed: 03/19/18 10:04> Treatment Plan Problems - Problems identified on initial assessmt ETOH Dependence Date Initiated: 03/19/18 Time Initiated: 08:00 Assessment reference: NA Status: Active Opiate Dependence Date Initiated: 03/19/18 Assessment reference: NA Status: Active Treatment assets and liabiliti Patient Assests: ADL independent, negotiates basic needs, cognitively intact Patient Liabilities: substance abuse - Milieu Protocol Maintain good personal hygiene: daily Encourage regular showers, daily Remind patient to perform daily oral care, daily Assist patient to perform ADL's Maintain personal safety: every shift Educate patient to report safety concerns to staff, every shift Monitor environment for contraband/sharps Medication safety: Monitor for expected outcome, potential side effects: every shift, Assess barriers to learning: every shift, Assess readiness for medication education: every shift <Lauren Rai - Last Filed: 03/19/18 13:11> - Diagnosis (1) Opioid use disorder, severe, dependence Status: Acute Interventions: 03/19/18 13:11 * Assess 7x/week regarding severity of withdrawal * Educate regarding risks, benefits, side effects and alternatives of medications * Use Motivational Interviewing for abstinence * Use CBT for relapse prevention * Medication management for withdrawal symptoms * Encourage medication assisted treatment * (2) Alcohol use disorder, severe, dependence Status: Acute Interventions: 03/19/18 13:11 * Assess 7x/week regarding severity of withdrawal * Educate regarding risks, benefits, side effects and alternatives of medications * Use Motivational Interviewing for abstinence * Use CBT for relapse prevention * Medication management for withdrawal symptoms * Encourage medication assisted treatment *
[2018-03-20 05:57] VITALS: TEMP 97.6
[2018-03-20 06:51] VITALS: RESP 18
[2018-03-20] MEDS: Multiple Vitamins Tab PO SCH (09:01)
--- NOTE | 2018-03-20 09:29 | PCM.PYCHDC ---
Mental Status Examination - Mental Status Examination Orientation: Person Discharge Summary - Discharge Note Consultations:: List each consultation separately and include: 1. Reason for request. 2. Findings. 3. Follow-up Summary of Hospital Course include:: 1. Description of specific treatment plan utilized for patients during their course of treatmen. 2. Summarize the time- course for resolution of acute symptoms and/or regressed behaviors. 3. Describe issues identified and worked on during hospitalization. 4. Describe medication utilized. 5. Describe medical problems identified and treated. 6. Reassessment of suicide risk Summary of Hospital Course: This patient was seen, chart reviewed, and case discussed with staff. Patient is a 52 year old male who is homeless. He is single with 3 adult children (ages 29, 30, 31) and is still employed for manual labor ( building work, taking out garbage). he is known from a previous detox admission. Patient reports alcohol use, average 3 pints of liquor and few cans beer daily for the past 3 years but he increased remarkably this year. He denies previously attending detox except for here in June 2017, rehab, or AA. He denies any history of seizures but had DT-like episodes. He was on a methadone maintenance program at [facility], 160mg/day but they "kicked him out" after he kept on drinking afetr the detox. He claims they did not taper him off. He now uses 5 bags of heroin IV. He denies any cocaine, PCP, LSD, but uses MJ daily and tobacco use at 1ppd. Past medical history: HTN Past psychiatric history: schizophrenia, bipolar disorder, depression, PTSD and he still has depression and anxiety Family psychiatric history: brother committed suicide - Diagnosis (1) Opioid use disorder, severe, dependence Current Visit: Yes Status: Acute (2) Alcohol use disorder, severe, dependence Current Visit: No Status: Acute - Final Diagnosis (DSM 5) Condition upon Discharge: GOOD Disposition: AGAINST MEDICAL ADVICE Follow-up Treatment Plan: Taper with methadone and librium Gabapentin for augmentation if needed As needed medications All risks, benefits and alternatives of the meds discussed, and the pt agreed and understood. Attend groups and activities Supportive therapy and psychoeducation MS for abstinence CBT for relapse prevention Encourage MAT Refer to rehab or IOP, and self-help groups Smoking cessation with MS Nicotine patch if needed 34 min
[2018-03-20 09:56] VITALS: BP 140/94; PULSE 100; O2SAT 98
== END 2018-03-20 09:40 | disposition left against medical advice (07) | DRG 743 ==
LOC: C.ER 17:51 → C.7D 22:31
PROC: HZ2ZZZZ Detoxification Services for Substance Abuse Treatment (ICD-10-PCS; principal; 2018-03-18)
PROC: HZ59ZZZ Individual Psychotherapy for Substance Abuse Treatment, Supportive (ICD-10-PCS; 2018-03-18)
PROC: HZ46ZZZ Group Counseling for Substance Abuse Treatment, Psychoeducation (ICD-10-PCS; 2018-03-18)
PROC: GZ3ZZZZ Medication Management (ICD-10-PCS; 2018-03-18)
DX: F11.23 Opioid dependence with withdrawal (principal); F10.239 Alcohol dependence with withdrawal, unspecified; F12.90 Cannabis use, unspecified, uncomplicated; F43.10 Post-traumatic stress disorder, unspecified; F31.9 Bipolar disorder, unspecified; F20.9 Schizophrenia, unspecified; I10 Essential (primary) hypertension; Z59.0 Homelessness; Z72.0 Tobacco use

== ENCOUNTER 2018-04-15 17:25 | Emergency (ER) | payer MEDICAID, OTHER ==
[2018-04-15 17:25] VITALS: BMI 24.2
[2018-04-15 17:45] VITALS: BP 146/93; PULSE 90; RESP 22; TEMP 99.2; O2SAT 96
--- NOTE | 2018-04-15 19:55 | C.PDOC ---
History Of Present Illness 52 y/o intoxicated male brought in by ambulance, and left without being seen. As per staff pt was argumentative, no new injuries. Time Seen by Provider: 04/15/18 19:37 Chief Complaint (Nursing): Abdominal Pain Past Medical History Reviewed: Historical Data, Nursing Documentation, Vital Signs Vital Signs: Last Vital Signs Temp 99.2 F 04/15/18 17:39 Pulse 90 04/15/18 17:39 Resp 22 04/15/18 17:39 BP 146/93 H 04/15/18 17:39 Pulse Ox 96 04/16/18 01:12 - Medical History PMH: Anxiety, Back Problems, Depression, Hepatitis (C), HTN, Pancreatitis, Schizophrenia Denies: Diabetes, HIV, Chronic Kidney Disease, Seizures, Sexually Transmitted Disease Surgical History: Cholecystectomy - [facility] Procedures ALCOHOL DETOXIFICATION (04/20/15) DETOXIFICATION SERVICES FOR SUBSTANCE ABUSE TREATMENT (03/18/18) GROUP VALVE GRINDER FOR SUBSTANCE ABUSE TREATMENT, PSYCHOEDUCATION (03/18/18) INDIV PSYCHOTHERAPY FOR SUBSTANCE ABUSE TREATMENT, SUPPORT (03/18/18) MEDICATION MANAGEMENT (03/18/18) MEDS MGMT FOR SUBSTANCE ABUSE TREATMENT, METHADONE MAINT (07/11/17) Family History: States: No Known Family Hx - Social History Hx Tobacco Use: Yes Hx Alcohol Use: Yes Hx Substance Use: Yes - Immunization History Hx Tetanus Toxoid Vaccination: No Hx Influenza Vaccination: No Hx Pneumococcal Vaccination: No Review Of Systems Except As Marked, All Systems Reviewed And Found Negative. ED Course And Treatment O2 Sat by Pulse Oximetry: 96 Reevaluation Time: 19:30 (LWOBS) Medical Decision Making Medical Decision Making: chronic pains and alcohol abuse per triage and staff reporting. LWOBS Disposition - Disposition Disposition: LEFT W/O BEING SEEN - ER ONLY Disposition Time: 19:30 Condition: UNKNOWN Forms: [facility] (Palestinian) - Clinical Impression Clinical Impression: Alcoholism - Scribe Statement The provider has reviewed the documentation as recorded by the Scribe (Berna Chua) Provider Attestation: All medical record entries made by the Scribe were at my direction and personally dictated by me. I have reviewed the chart and agree that the record accurately reflects my personal performance of the history, physical exam, medical decision making, and the department course for this patient. I have also personally directed, reviewed, and agree with the discharge instructions and disposition.
== END 2018-04-15 19:40 | disposition left against medical advice (07) ==
LOC: C.ER 17:25
DX: Z02.89 Encounter for other administrative examinations (principal); F10.20 Alcohol dependence, uncomplicated
CPT/HCPCS: 82948; LWBS0

== ENCOUNTER 2018-07-08 23:34 | Emergency (ER) | payer OTHER ==
[2018-07-08 23:35] VITALS: BMI 24.2
--- NOTE | 2018-07-09 00:49 | C.PDOC ---
History Of Present Illness 53 year old male presents to the ER via EMS for public intoxication. Patient complains of pain to the bilateral legs. Denies injury, trauma, weakness, or numbness. Chief Complaint (Nursing): Lower Extremity Problem/Injury History Per: Patient History/Exam Limitations: no limitations Onset/Duration Of Symptoms: Hrs Current Symptoms Are (Timing): Still Present Recent travel outside of the [place]: No Past Medical History Reviewed: Historical Data, Nursing Documentation, Vital Signs Vital Signs: Last Vital Signs Temp 98.1 F 07/08/18 23:44 Pulse 86 07/08/18 23:44 Resp 18 07/08/18 23:44 BP 152/88 H 07/08/18 23:44 Pulse Ox 96 07/08/18 23:44 - Medical History PMH: Anxiety, Back Problems, Depression, Hepatitis (C), HTN, Pancreatitis, Schizophrenia Denies: Diabetes, HIV, Chronic Kidney Disease, Seizures, Sexually Transmitted Disease Surgical History: Cholecystectomy - [facility] Procedures ALCOHOL DETOXIFICATION (04/20/15) DETOXIFICATION SERVICES FOR SUBSTANCE ABUSE TREATMENT (03/18/18) GROUP EMISSIONS REPAIR TECHNICIAN FOR SUBSTANCE ABUSE TREATMENT, PSYCHOEDUCATION (03/18/18) INDIV PSYCHOTHERAPY FOR SUBSTANCE ABUSE TREATMENT, SUPPORT (03/18/18) MEDICATION MANAGEMENT (03/18/18) MEDS MGMT FOR SUBSTANCE ABUSE TREATMENT, METHADONE MAINT (07/11/17) Family History: States: Unknown Family Hx - Social History Hx Tobacco Use: Yes Hx Alcohol Use: Yes Hx Substance Use: No - Immunization History Hx Tetanus Toxoid Vaccination: No Hx Influenza Vaccination: No Hx Pneumococcal Vaccination: No Review Of Systems Constitutional: Negative for: Fever, Chills Cardiovascular: Negative for: Chest Pain, Palpitations Respiratory: Negative for: Cough, Shortness of Breath Gastrointestinal: Negative for: Nausea, Vomiting Musculoskeletal: Positive for: Leg Pain (Bilateral) Neurological: Negative for: Weakness, Numbness Physical Exam - Physical Exam Appears: Non-toxic, Other (AOB, no sign of injury) Skin: Normal Color, Warm, Dry Head: Atraumatic, Normacephalic Eye(s): bilateral: Normal Inspection Oral Mucosa: Moist Neck: Normal, Supple Chest: Symmetrical, No Tenderness Cardiovascular: Rhythm Regular Respiratory: Normal Breath Sounds, No Rales, No Rhonchi, No Wheezing Gastrointestinal/Abdominal: Soft, No Tenderness Extremity: Normal ROM (x4), No Tenderness, No Deformity Neurological/Psych: Oriented x3, Normal Speech, Normal Motor, Normal Sensation ED Course And Treatment O2 Sat by Pulse Oximetry: 96 (room air) Pulse Ox Interpretation: Normal Progress Note: Motrin administered. Patient noted to be ambulatory in the ER without any difficulty. Disposition - Disposition Referrals: [facility] [Outside] Disposition: HOME/ ROUTINE Disposition Time: 06:20 Condition: STABLE Instructions: Alcohol Abuse and Alcoholism (DC) Forms: [employer] (Croatian) - Clinical Impression Clinical Impression: Alcohol abuse, Chronic leg pain - Scribe Statement The provider has reviewed the documentation as recorded by the Scribe Eliceo Moncada All medical record entries made by the Scribe were at my direction and personally dictated by me. I have reviewed the chart and agree that the record accurately reflects my personal performance of the history, physical exam, medical decision making, and the department course for this patient. I have also personally directed, reviewed, and agree with the discharge instructions and disposition.
--- NOTE | 2018-07-09 04:51 | C.PDOC ---
Chief Complaint (Nursing): Lower Extremity Problem/Injury Past Medical History Vital Signs: Last Vital Signs Temp 98.1 F 07/08/18 23:44 Pulse 86 07/08/18 23:44 Resp 18 07/08/18 23:44 BP 152/88 H 07/08/18 23:44 Pulse Ox 96 07/08/18 23:44 - Medical History PMH: Anxiety, Back Problems, Depression, Hepatitis (C), HTN, Pancreatitis, Schizophrenia Denies: Diabetes, HIV, Chronic Kidney Disease, Seizures, Sexually Transmitted Disease Surgical History: Cholecystectomy - [facility] Procedures ALCOHOL DETOXIFICATION (04/20/15) DETOXIFICATION SERVICES FOR SUBSTANCE ABUSE TREATMENT (03/18/18) GROUP PRINTING AGENT FOR SUBSTANCE ABUSE TREATMENT, PSYCHOEDUCATION (03/18/18) INDIV PSYCHOTHERAPY FOR SUBSTANCE ABUSE TREATMENT, SUPPORT (03/18/18) MEDICATION MANAGEMENT (03/18/18) MEDS MGMT FOR SUBSTANCE ABUSE TREATMENT, METHADONE MAINT (07/11/17) Family History: States: Unknown Family Hx - Social History Hx Tobacco Use: Yes Hx Alcohol Use: Yes Hx Substance Use: No - Immunization History Hx Tetanus Toxoid Vaccination: No Hx Influenza Vaccination: No Hx Pneumococcal Vaccination: No ED Course And Treatment O2 Sat by Pulse Oximetry: 96 Disposition Counseled Patient/Family Regarding: Diagnosis - Disposition Referrals: [facility] [Outside] Disposition: HOME/ ROUTINE Disposition Time: 06:20 Condition: STABLE Instructions: Alcohol Abuse and Alcoholism (DC) Forms: [employer] (Haitian) - POA Present On Arrival: None - Clinical Impression Clinical Impression: Alcohol abuse, Chronic leg pain
[2018-07-09 06:14] VITALS: BP 104/75; PULSE 68; RESP 12; TEMP 97.6
[2018-07-09 12:58] VITALS: O2SAT 96
== END 2018-07-09 06:12 | disposition home or self-care (01) ==
LOC: C.ER 23:34
DX: F10.10 Alcohol abuse, uncomplicated (principal); Y90.9 Presence of alcohol in blood, level not specified; G89.29 Other chronic pain; M79.605 Pain in left leg; M79.604 Pain in right leg

== ENCOUNTER 2018-08-26 20:37 | Inpatient (IN) | payer OTHER ==
[2018-08-26 20:37] VITALS: BMI 24.2
--- NOTE | 2018-08-26 21:42 | C.PDOC ---
History Of Present Illness 53 year old male presents to the ED requesting alcohol detox. Patient was told there were no detox beds available, after hearing that patient reports he has PMHx pancreatitis and is c/o abdominal pain. Patient reports he has been chiquita cuevas today. Patient denies fever, chills, nausea, vomit, diarrhea, back pain, weakness, numbness, SI, HI, hallucinations. Time Seen by Provider: 08/26/18 20:59 Chief Complaint (Nursing): Substance Abuse History Per: Patient History/Exam Limitations: intoxication Onset/Duration Of Symptoms: Hrs Current Symptoms Are (Timing): Still Present Suicide/Self Injury Attempted (Context): None Modifying Factor(s): Alcohol Associated Symptoms: denies: Depression, Suicidal Thoughts, Suicidal Plan Recent travel outside of the [place]: No Additional History Per: Patient Past Medical History Reviewed: Historical Data, Nursing Documentation, Vital Signs - Medical History PMH: Anxiety, Back Problems, Depression, Hepatitis (C), HTN, Pancreatitis, Schizophrenia Denies: Diabetes, HIV, Chronic Kidney Disease, Seizures, Sexually Transmitted Disease Surgical History: Cholecystectomy - [facility] Procedures ALCOHOL DETOXIFICATION (04/20/15) DETOXIFICATION SERVICES FOR SUBSTANCE ABUSE TREATMENT (03/18/18) GROUP EXTENSION SERVICE SPECIALIST IN CHARGE FOR SUBSTANCE ABUSE TREATMENT, PSYCHOEDUCATION (03/18/18) INDIV PSYCHOTHERAPY FOR SUBSTANCE ABUSE TREATMENT, SUPPORT (03/18/18) MEDICATION MANAGEMENT (03/18/18) MEDS MGMT FOR SUBSTANCE ABUSE TREATMENT, METHADONE MAINT (07/11/17) Family History: States: Unknown Family Hx - Social History Hx Tobacco Use: Yes Hx Alcohol Use: Yes Hx Substance Use: No - Immunization History Hx Tetanus Toxoid Vaccination: No Hx Influenza Vaccination: No Hx Pneumococcal Vaccination: No Review Of Systems Constitutional: Negative for: Fever, Chills Cardiovascular: Negative for: Chest Pain, Palpitations Respiratory: Negative for: Shortness of Breath Gastrointestinal: Positive for: Abdominal Pain. Negative for: Nausea, Vomiting, Diarrhea Skin: Negative for: Rash Neurological: Negative for: Weakness, Numbness Psych: Negative for: Depression, Suicidal ideation Physical Exam - Physical Exam Appears: Non-toxic, No Acute Distress Skin: Normal Color, Warm, Dry Head: Atraumatic, Normacephalic Eye(s): bilateral: Normal Inspection Oral Mucosa: Moist Lips: Other (middle upper lip cut) Neck: Normal ROM, Supple Chest: Symmetrical Cardiovascular: Rhythm Regular Respiratory: Normal Breath Sounds, No Rales, No Rhonchi, No Wheezing Gastrointestinal/Abdominal: Soft, No Tenderness, No Guarding, No Rebound Back: No CVA Tenderness Extremity: Normal ROM, No Tenderness, No Swelling Neurological/Psych: Oriented x3, Normal Speech, Normal Cognition Gait: Steady ED Course And Treatment - Laboratory Results Result Diagrams: 08/26/18 22:32 08/26/18 22:32 O2 Sat by Pulse Oximetry: 98 (ON RA) Pulse Ox Interpretation: Normal Medical Decision Making Medical Decision Making: Plan: * Labs * UA * Crisis Crisis informed me that there was a bed available in detox, will order labs and ua for patient to be seen. 00:20 - Patient medically cleared 01:07- Patient was accepted for admission by Dr. Rai Disposition Counseled Patient/Family Regarding: Studies Performed, Diagnosis - Disposition Disposition: HOSPITALIZED Disposition Time: 01:00 Condition: STABLE - Clinical Impression Clinical Impression: Alcohol abuse, Alcohol intoxication, Elevated LFTs, Elevated lipase, Hypokalemia - Scribe Statement The provider has reviewed the documentation as recorded by the Scribbrenda Escalante All medical record entries made by the Scribe were at my direction and personally dictated by me. I have reviewed the chart and agree that the record accurately reflects my personal performance of the history, physical exam, medical decision making, and the department course for this patient. I have also personally directed, reviewed, and agree with the discharge instructions and disposition.
[2018-08-26 22:35] LABS: BASO % 0.7 % (0.0-2.0); EOS % 0.8 % (0.0-4.0); HEMOGLOBIN 13.8 g/dL (12.0-18.0); LYMPH % 44.3 % (20.0-40.0); MEAN CELL VOLUME 95.6 fL (80.0-94.0); MEAN CORPUSCULAR HEMOGLOBIN 32.2 pg (27.0-31.0); MEAN CORPUSCULAR HGB CONC 33.7 g/dL (33.0-37.0); MEAN PLATELET VOLUME 6.9 fL (7.2-11.7); MONO # 0.4 K/uL (0.0-0.8); MONO % 8.7 % (0.0-10.0); NEUT # 2.1 K/uL (1.8-7.0); NEUT % 45.5 % (50.0-75.0); NRBC % 0.1 % (0.0-2.0); RBC 4.29 Mil/uL (4.40-5.90); RED CELL DISTRIBUTION WIDTH 13.8 % (11.5-14.5); WHITE BLOOD COUNT 4.6 K/uL (4.8-10.8)
[2018-08-26 22:40] LABS: SQUAMOUS EPITHIAL < 1 /hpf (0-5); URINE BACTERIA RARE (<OCC); URINE BILIRUBIN NEGATIVE (NEGATIVE); URINE BLOOD 2+ (NEGATIVE); URINE CLARITY Clear (Clear); URINE COLOR Yellow (YELLOW); URINE GLUCOSE (UA) NORMAL (Normal); URINE LEUKOCYTE ESTERASE NEG Leu/uL (Negative); URINE PROTEIN 2+ mg/dL (NEGATIVE)
[2018-08-26 22:49] LABS: ALB/GLOB RATIO 1.2 (1.0-2.1); ALBUMIN 4.4 g/dL (3.5-5.0); ALT/SGPT 49 U/L (21-72); AST/SGOT 103 U/L (17-59); BLOOD UREA NITROGEN 11 mg/dL (9-20); CALCIUM 8.8 mg/dl (8.6-10.4); GFR NON-AFRICAN AMERICAN > 60; LIPASE 533 U/L (23-300)
[2018-08-26] MEDS ORDERED: Potassium Chloride 20 mEq ER Tab PO STA (23:05)
[2018-08-26] MEDS ORDERED: Potassium Chloride 20 mEq ER Tab PO ONE (23:22)
[2018-08-26 23:40] LABS: BARBITURATES, UR NEGATIVE (NEGATIVE); BENZODIAZEPINES, UR NEGATIVE (NEGATIVE); OPIATES, UR NEGATIVE (NEGATIVE); PHENCYCLIDINE, UR NEGATIVE (NEGATIVE)
--- NOTE | 2018-08-27 04:43 | PCM.BM ---
<Surekha Moya - Last Filed: 08/27/18 04:41> Treatment Plan Problems - Problems identified on initial assessmt Knowledge Deficit: Alcohol Use Date Initiated: 08/27/18 Time Initiated: 04:42 Assessment reference: NA Status: Active Denial Date Initiated: 08/27/18 Time Initiated: 04:42 Assessment reference: NA Status: Active Defensive Coping Date Initiated: 08/27/18 Time Initiated: 04:42 Assessment reference: NA Status: Active Treatment assets and liabiliti Patient Assests: ADL independent, negotiates basic needs, cognitively intact Patient Liabilities: financial problems, poor support system, substance abuse, other (Homeless) - Milieu Protocol Maintain good personal hygiene: daily Encourage regular showers, daily Remind patient to perform daily oral care, daily Assist patient to perform ADL's Maintain personal safety: every shift Educate patient to report safety concerns to staff, every shift Monitor environment for contraband/sharps Medication safety: Monitor for expected outcome, potential side effects: every shift, Assess barriers to learning: every shift, Assess readiness for medication education: every shift <Kim Shi - Last Filed: 08/27/18 12:07> Treatment Plan Problems - Problems identified on initial assessmt abnormal vital signs Date Initiated: 08/27/18 Assessment reference: NA Status: Active Low motivation to change Date Initiated: 08/27/18 Assessment reference: NA Status: Active <Maria Fernanda Calixto - Last Filed: 08/28/18 12:02> Family Contact Family involvement: Famliy/SO not involved - Goals for Treatment Patient goals for treatment: Complete detox and discuss aftercare options with counseling staff. Discharge/Continuing Care - Education Needs Education Needs: Patient Medication, Patient Diagnosis/Disease Process, Patient Coping Skills, Patient Anger Management skills, Patient Placement options, Patient Community resources - Discharge Discharge Criteria: No longer exhibiting s/s of withdrawal, Reduction of target symptoms Discharge to:: Other - Additional Comments 08/28/18 12:02 TBD-Pt. is unsure what type of aftercare he wished to pursue. Counseling staff will continue to discuss with patient. - Treatment Team Participation Discussed with Family/SO: No Was Patient/Family/SO present at Treatment Team Meeting: Yes <Lauren Rai - Last Filed: 08/29/18 07:57> - Diagnosis (1) Alcohol use disorder, severe, dependence Status: Acute Interventions: 08/27/18 17:57 * Assess 7x/week regarding severity of withdrawal * Educate regarding risks, benefits, side effects and alternatives of medications * Use Motivational Interviewing for abstinence * Use CBT for relapse prevention * Medication management for withdrawal symptoms * Encourage medication assisted treatment *
[2018-08-27] MEDS: Multiple Vitamins Tab PO SCH (09:23)
[2018-08-27] MEDS ORDERED: Aluminum Hydroxide/Magnesium Hydroxide Susp (30 mL) PO PRN (09:41)
--- NOTE | 2018-08-27 09:48 | PCM.PSYCH ---
Initial Psychiatric Evaluation - Initial Psychiatric Evaluation Type of Admission: Voluntary Legal Status: Capacity Chief Complaint (in patient's own words): "I had a seizure because I drank too much" History of Present Illness and Precipitating Events: Patient is a 53 year old , currently homeless, single, unemployed male who has 2 children, ages 31 and 29, presents for alcohol detox. Patient states that he drinks 5 pints of vodka a day and has been drinking alcohol since he was 6 years old. He reports that he has been to this detox unit before, 03/18/18 and 07/10/17, and to [facility] in 2000. He denies ever going to rehab or any long-term facility. His longest length of sobriety was 5 years. Patient states that he has a history of DTs, blackouts, and seizures. Patient also admits to using 2 bags of heroin, intravascularly, daily since he was 17 years old. He smokes marijuana occasionally and a pack of cigarettes a day for the past 38 years. He denies being on any maintenance medications previously. Patient currently denies any suicidal or homicidal ideation. Past Psychiatric History: Diagnosed with bipolar disorder but it is unclear, but he did have and still has severe depression. Not suicidal, non-compliant with meds Familial Psych History: brother- mental illness with 2 suicide attempts Trauma Hx: history of incarceration, currently homeless. PMHx: He is frail and not able to take care of self properly. PSHx: pancreatic surgery Current Medications: Active Medications Generic Name Dose Route Start Last Admin Trade Name Freq PRN Reason Stop Dose Admin Al Hydrox/Mg Hydrox/Simethicone 30 ml 08/27/18 09:41 Maalox 30 Ml PO TID PRN Indigestion / Heartburn Chlordiazepoxide 25 mg 08/27/18 07:44 08/27/18 07:53 Librium PO 25 mg Q4 PRN Administration Alcohol withdrawal Chlordiazepoxide 50 mg 08/27/18 10:00 08/27/18 09:23 Librium PO 09/01/18 09:59 50 mg Q6 JESSICA Administration Taper Clonidine HCl 0.1 mg 08/27/18 06:22 08/27/18 06:29 Catapres PO 0.1 mg Q6H PRN Administration Withdrawal symptoms Folic Acid 1 mg 08/27/18 10:00 08/27/18 09:23 Folic Acid PO 1 mg DAILY JESSICA Administration Gabapentin 400 mg 08/27/18 10:00 08/27/18 09:23 Neurontin PO 400 mg TID JESSICA Administration Hydroxyzine HCl 25 mg 08/27/18 06:23 08/27/18 06:29 Atarax PO 25 mg Q6H PRN Administration Anxiety Ibuprofen 600 mg 08/27/18 08:52 Motrin Tab PO Q6H PRN Pain, moderate (4-7) Loperamide HCl 2 mg 08/27/18 09:41 Imodium PO Q8 PRN Diarrhea Multivitamins 1 tab 08/27/18 10:00 08/27/18 09:23 Hexavitamin PO 1 tab DAILY JESSICA Administration Ondansetron HCl 4 mg 08/27/18 09:41 Zofran Tab PO Q8 PRN Nausea/Vomiting Thiamine HCl 100 mg 08/27/18 10:00 08/27/18 09:23 Vitamin B1 Tab PO 100 mg DAILY JESSICA Administration Trazodone HCl 100 mg 08/27/18 08:45 Desyrel PO HS PRN Insomnia Past Psychiatric History - Past Psychiatric History Previous Treatment History: Intensive Outpatient Pertinent Medical Hx (Current Medical&Sleep Prob, Allergies): Allergies Allergy/AdvReac Type Severity Reaction Status Date / Time No Known Allergies Allergy Verified 08/26/18 21:12 No Known Home Med 03/18/18 Review of Systems - Psychiatric Psychiatric: Abnormal Sleep Pattern, Anhedonia, Confusion, Depression, Difficulty Concentrating. absent: Hallucinations, Homicidal Ideation, Suicidal Ideation, Visual Hallucinations Mental Status Examination - Personal Presentation Personal Presentation: Looks stated age - Affect Affect: Blunted - Motor Activity Motor Activity: Calm - Reliability in Providing Information Reliability in Providing Information: Fair - Speech Speech: Organized (mumbles a lot) - Mood Mood: Depressed, Anxious - Formal Thought Process Formal Thought Process: No Impairment (slow TP) - Obsessions/Compulsions Obsessions: No Compulsions: No - Cognitive Functions Orientation: Person, Place, Situation, Time Sensorium: Alert, Lethargic Attention/Concentration: Easily distracted Abstract Thinking: Brusly Estimate of Intelligence: Below average Judgement: Intact, as evidence by: Insight regarding need for hospitalization Memory: Recent impaired, as evidence by: Inability to recall events of the day, Remote impaired as evidenced by: Inability to recall sig life events - Risk Risk: Seizure, Withdrawal, Diminished functioning - Strength & Assets Inventory Strength & Assets Inventory: Cooperative - Limitations Limitations: Living alone DSM 5 DX - DSM 5 DSM 5 Diagnosis: Alcohol withdrawal with complication Opioid withdrawal Opioid use disorder- severe Alcohol use disorder- severe Major depressive d/o - severe, w/o psychosis, recurrent MALINDA - Recommended/Plan of Treatment Treatment Recommendations and Plan of Treatment: Taper with librium Remeron for depression Gabapentin for augmentation As needed medications All risks, benefits and alternatives of the meds discussed, and the pt agreed and understood. Attend groups and activities Supportive therapy and psychoeducation AK for abstinence CBT for relapse prevention Encourage MAT Refer to rehab or IOP, and self-help groups Teach healthy lifestyle methods, i.e. diet, exercise, meditation Smoking cessation with AK Nicotine patch if needed 35 min Projected ELOS: 4-5 days Prognosis: good with treatment - Smoking Cessation Smoking Cessation Initiated: Yes
[2018-08-28] MEDS: Multiple Vitamins Tab PO SCH (09:12)
--- NOTE | 2018-08-28 13:47 | PCM.PYCHPN ---
Psychiatric Progress Note - Psychiatric Progress Note Patient seen today, length of contact: 16 min Patient Chief Complaint: "I don't feel well" Problems Identified/Issues Discussed: The pt is seen, chart reviewed, case is discussed with staff. The pt is compliant with medications and reports no side-effects. Symptoms are improving but needs more time to stabilize and to avoid relapse. Pt attends groups and activities. Support given, psycho-education provided. After care discussed. Medication Change: Yes (detox changes daily) Medical Record Reviewed: Yes Mental Status Examination - Cognitive Function Orientation: Person, Place, Situation, Time Memory: Intact Attention: WNL Concentration: Poor Association: WNL Fund of Knowledge: WNL - Mood Mood: Depressed, Anxious - Affect Affect: Blunted - Speech Speech: Appropriate - Formal Thought Process Formal Thought Process: No Impairment (slow TP) - Suicidal Ideation Suicidal Ideation: No - Homicidal Ideation Homicidal Ideation: No Goal/Treatment Plan - Goal/Treatment Plan Need for Continued Stay: Discharge may exacerbated symptoms, Severe functional impairment Progress Toward Problem(s) and Goals/Treatment Plan: Taper with librium Remeron for depression Gabapentin for augmentation As needed medications All risks, benefits and alternatives of the meds discussed, and the pt agreed and understood. Attend groups and activities Supportive therapy and psychoeducation [place] for abstinence CBT for relapse prevention Encourage MAT Refer to rehab or IOP, and self-help groups Teach healthy lifestyle methods, i.e. diet, exercise, meditation Smoking cessation with UT Nicotine patch if needed Estimated Date of D/C: 09/02/18
[2018-08-28] MEDS: Albuterol HFA 90 mcg/actuation (8 g) INH PRN (17:28)
[2018-08-29 09:01] VITALS: RESP 18
[2018-08-29] MEDS: Multiple Vitamins Tab PO SCH (10:18)
--- NOTE | 2018-08-29 11:53 | PCM.PYCHPN ---
Psychiatric Progress Note - Psychiatric Progress Note Patient seen today, length of contact: 17 min Patient Chief Complaint: "I have a cough and still shaky" Problems Identified/Issues Discussed: The pt is seen, chart reviewed, case discussed with staff. Patient complains of a cough and a dry throat that started yesterday. Support and psychoeducation given, CBT and MS used briefly No new symptoms reported, improving slowly and needs more time No SEs from medications, risks discussed. After care discussed Medication Change: Yes (detox changes daily) Medical Record Reviewed: Yes Mental Status Examination - Cognitive Function Orientation: Person, Place, Situation, Time Memory: Intact Attention: WNL Concentration: Poor Association: WNL Fund of Knowledge: WNL - Mood Mood: Depressed, Anxious - Affect Affect: Blunted, Flat - Speech Speech: Appropriate - Formal Thought Process Formal Thought Process: No Impairment (slow TP) - Suicidal Ideation Suicidal Ideation: No - Homicidal Ideation Homicidal Ideation: No Goal/Treatment Plan - Goal/Treatment Plan Need for Continued Stay: Discharge may exacerbated symptoms, Severe functional impairment Progress Toward Problem(s) and Goals/Treatment Plan: Taper with librium continues Remeron for depression Albuterol PRN for wheezing Maalox PRN indigestion Remeron for insomnia and depressive sxs Gabapentin for augmentation As needed medications All risks, benefits and alternatives of the meds discussed, and the pt agreed and understood. Attend groups and activities Supportive therapy and psychoeducation MS for abstinence CBT for relapse prevention Encourage MAT Refer to rehab or IOP, and self-help groups Teach healthy lifestyle methods, i.e. diet, exercise, meditation Smoking cessation with MS Nicotine patch if needed Estimated Date of D/C: 09/02/18
[2018-08-29 13:29] VITALS: O2SAT 96
[2018-08-29] MEDS: Albuterol HFA 90 mcg/actuation (8 g) INH PRN (19:12)
[2018-08-30 08:49] VITALS: BP 118/87; PULSE 99; TEMP 97.5
[2018-08-30] MEDS: Multiple Vitamins Tab PO SCH (09:24)
--- NOTE | 2018-08-30 12:57 | PCM.PYCHDC ---
Mental Status Examination - Mental Status Examination Orientation: Person, Place, Situation, Time Memory: Impaired Mood: Anxious Affect: Constricted Speech: Slurred Attention: Poor Concentration: Poor Association: WNL Fund of Knowledge: Poor Formal Thought Process: No Impairment Suicidal Ideation: No Current Homicidal Ideation?: No Discharge Summary - Discharge Note Consultations:: List each consultation separately and include: 1. Reason for request. 2. Findings. 3. Follow-up Summary of Hospital Course include:: 1. Description of specific treatment plan utilized for patients during their course of treatmen. 2. Summarize the time- course for resolution of acute symptoms and/or regressed behaviors. 3. Describe issues identified and worked on during hospitalization. 4. Describe medication utilized. 5. Describe medical problems identified and treated. 6. Reassessment of suicide risk Summary of Hospital Course: On admission: Patient is a 53 year old , currently homeless, single, unemployed male who has 2 children, ages 31 and 29, presents for alcohol detox. Patient states that he drinks 5 pints of vodka a day and has been drinking alcohol since he was 6 years old. He reports that he has been to this detox unit before, 03/18/18 and 07/10/17, and to [facility] in 2000. He denies ever going to rehab or any long-term facility. His longest length of sobriety was 5 years. Patient states that he has a history of DTs, blackouts, and seizures. Patient also admits to using 2 bags of heroin, intravascularly, daily since he was 17 years old. He smokes marijuana occasionally and a pack of cigarettes a day for the past 38 years. He denies being on any maintenance medications previously. Patient currently denies any suicidal or homicidal ideation. Past Psychiatric History: Diagnosed with bipolar disorder but it is unclear, but he did have and still has severe depression. Not suicidal, non-compliant with meds Familial Psych History: brother- mental illness with 2 suicide attempts Trauma Hx: history of incarceration, currently homeless. PMHx: He is frail and not able to take care of self properly. PSHx: pancreatic surgery Hospital course: The pt was admitted and started on treatment with psychotherapy, support, psychoeducation and medications. All the risks and benefits of medications are discussed and the patient understood and agreed. IL and CBT used. The pt attended groups and activities, as well as milieu therapy. The pt improved with the treatments provided. After care discussed with the patient. He left a day early and refused today's meds. He admitted that he was going to get money from a freind and that it could n't wait. Risks of leaving early discussed He was slurring, not new but still, he is evaluated by the flex o writer operator and Maria Fernanda Calixto. He was not confused. He will likely relapse - warned of all the risks, incl. . - Final Diagnosis (DSM 5) Condition upon Discharge: STABLE Disposition: HOME/ ROUTINE Follow-up Treatment Plan: Continue below medications after discharge. Follow after care plan as discussed. Use relapse prevention skills Return to ER or call 911 if suicidal, homicidal or symptoms relapse. Stay away from stress, alcohol and drugs. See primary doctor regularly and get labs.
== END 2018-08-30 09:45 | disposition home or self-care (01) | DRG 744 ==
LOC: C.ER 20:37 → C.9E 08-27 01:09 → C.7D 08-27 01:45
PROVIDERS: ADMIT Psychiatry & Neurology Psychiatry; ATTEND Psychiatry & Neurology Psychiatry
PROC: HZ2ZZZZ Detoxification Services for Substance Abuse Treatment (ICD-10-PCS; principal; 2018-08-27)
PROC: GZ3ZZZZ Medication Management (ICD-10-PCS; 2018-08-27)
PROC: HZ80ZZZ Medication Management for Substance Abuse Treatment, Nicotine Replacement (ICD-10-PCS; 2018-08-27)
PROC: HZ46ZZZ Group Counseling for Substance Abuse Treatment, Psychoeducation (ICD-10-PCS; 2018-08-27)
PROC: HZ59ZZZ Individual Psychotherapy for Substance Abuse Treatment, Supportive (ICD-10-PCS; 2018-08-27)
DX: F10.230 Alcohol dependence with withdrawal, uncomplicated (principal); F11.23 Opioid dependence with withdrawal; F33.2 Major depressive disorder, recurrent severe without psychotic features; E87.6 Hypokalemia; F10.220 Alcohol dependence with intoxication, uncomplicated; G40.509 Epileptic seizures related to external causes, not intractable, without status epilepticus; F12.90 Cannabis use, unspecified, uncomplicated; F17.210 Nicotine dependence, cigarettes, uncomplicated; F31.9 Bipolar disorder, unspecified; F20.9 Schizophrenia, unspecified; R74.8 Abnormal levels of other serum enzymes; G47.00 Insomnia, unspecified; Y90.8 Blood alcohol level of 240 mg/100 ml or more; I10 Essential (primary) hypertension; Z59.0 Homelessness